=== PATIENT | male | born 1985 | race Caucasian/White ===

== ENCOUNTER 2018-02-18 19:53 | Emergency (ER) | payer OTHER, MEDICAID ==
[~2018-02-18] VITALS: Ht 175.3 cm; Wt 74.8 kg
[~2018-02-18 19:53] MED LIST: A-B OTIC EAR DR15 ML OT; ACETAMINOPHEN-1 EAC1 PO; AUGMENTIN 875875 M1 PO; BACTRIM DS TAB1 EACH PO; CIPROFLOXACIN500 M3 OR; CLONAZEPAM 0.50.5 M1 PO; CLONAZEPAM 1 MG1 M1 PO; ERYTHROMYCIN E3.5 G2 OP; FLEXERIL PO; HYDROCODON-ACE1 EAC7; HYDROCODONE-AP1 EAC6 PO; IBUPROFEN 400400 M1 PO; IBUPROFEN 800800 M1 PO; KEFLEX500 MG PO; LIDOCAINE VISC100 M1 SWISH&SPIT; MEDROLDOSEPACK PO; NOHOMEMEDICATIONS; NORCO 5-325 TA1 EAC1 PO; NORCO 5-325 TA1 EACH PO; PENICILLIN V P500 MG PO; PREDNISONE 20 M20 M1 PO; PYRIDIUM200 MG PO; ROBAXIN 750 MG750 M1 PO; TRAMADOL 50 MG50 MG PO; TRAZODONE HCL100 MG PO; VENTOLIN HFA 1818 GM INH; XANAX 0.5 MG0.5 MG PO
[2018-02-18 22:03] VITALS: BP 111/74
== END 2018-02-18 22:05 | disposition home or self-care (01) ==
LOC: M.ERS 19:53
DX: T78.40XA Allergy, unspecified, initial encounter (principal); R06.00 Dyspnea, unspecified; X58.XXXA Exposure to other specified factors, initial encounter